=== PATIENT | female | born 1930 | race Caucasian/White ===

== ENCOUNTER 2021-03-03 13:13 | Inpatient (IN) | payer OTHER, MEDICARE ==
--- OUTSIDE RECORDS SUMMARY | 2021-03-03 13:17 | XMS REPORT | Continuity of Care Document ---
:1930 Author Organization [facility] t Address [address] [place] [address] Care Team Providers Name Role Phone Vinod Garcia MD Primary Care Physician Doctor Unassigned, [place] Attending Clinician Unavailable Ac Pastor MD Attending Clinician Rae Saavedra MD Attending Clinician Amado Elder MD Attending Clinician Martin Marrero DO Attending Clinician Kevin MAJANO Attending Clinician JANES Admitting Clinician Unavailable Payers Payer Name Policy Type Policy Effective Date Expiration Date Sour Number AARPAARP [id number] 2007 [facility] [id number] 00:00:00 Cara ballard 2007-PresentComme rcial MEDICAREMEDICARE PART [id number] Pr [facility] A AND 00:00:00 [facility] [id number] 1995 [place] Problems Condition Condition Condition Status Onset Resolution Last Treating Co mments Source Name Details Category Date Date Treatment Clinician Date Stroke Stroke Disease Active Methodi (cerebrum) (cerebrum) 1 st 00:00: Hospita 00 l KEYLA (acute KEYLA (acute Disease Active M ethodi kidney kidney 1 st injury) injury) 00:00: Hospita 00 l Constipate Constipate Disease Active M ethodi d d 1 st 00:00: Hospita 00 l Generalize Generalize Disease Active M ethodi d d 3 st abdominal abdominal 00:00: [facility] pain pain 00 l Acute Acute Disease Active Methodi renal renal 3 st failure failure 00:00: Hospita superimpos superimpos 00 l ed on ed on stage 3 stage 3 chronic chronic kidney kidney disease disease Hyponatrem Hyponatrem Disease Active M ethodi ia ia 3 st 00:00: Hospita 00 l Acute Acute Disease Active 2017-07 [facility] cystitis cystitis 0-03 st 00:00: Hospita 00 l Epigastric Epigastric Disease Active 2017-07 M ethodi pain pain 0-03 st 00:00: Hospita 00 l Bilateral Bilateral Disease Active 2017-07 Met hodi hearing hearing 0-03 st loss loss 00:00: Hospita 00 l TIA TIA Disease Active 2017-07 [facility] (transient (transient 0-02 st ischemic ischemic 00:00: Hospit a attack) attack) 00 l Essential Essential Disease Active 2017-07 [facility] hypertensi hypertensi 0-02 st on on 00:00: Hospita 00 l Renal Renal Disease Active 2017-07 Methodi insufficie insufficie 0-02 st ncy ncy 00:00: Hospita 00 l Depression Depression Disease Active 2017-07 M ethodi 0-02 st 00:00: Hospita 00 l TIA TIA Disease Active Methodi (transient (transient 4-29 st ischemic ischemic 00:00: Hospit a attack) attack) 00 l Dementia Dementia Disease Active 2017-0 Metho di 4- st 00:00: Hospita 00 l Paroxysmal Paroxysmal Disease Active M ethodi atrial atrial 11-06 st fibrillati fibrillati 00:00: Ho spita on on 00 l Transient Transient Disease Active Met hodi cerebral cerebral 11-03 st ischemia ischemia 00:00: Hospit a 00 l Clostridiu Clostridiu Disease Active M ethodi m m 01-06 st difficile difficile 00:00: [facility] enterocoli enterocoli 00 l tis tis Pneumonia Pneumonia Disease Active Met hodi of right of right 01-03 st lower lobe lower lobe 00:00: Ho spita due to due to 00 l infectious infectious organism organism Debility Debility Disease Active Metho di 12-30 st 00:00: Hospita 00 l UTI UTI Disease Active [facility] (urinary (urinary 12-30 st tract tract 00:00: Hospita infection) infection) 00 l Diarrhea Diarrhea Disease Active Metho di 12-22 st 00:00: Hospita 00 l Dehydratio Dehydratio Disease Active M ethodi n n 12-21 st 00:00: Hospita 00 l Delirium Delirium Disease Active Metho di 12-21 st 00:00: Hospita 00 l Hypertensi Hypertensi Disease Active M ethodi ve ve 12-21 emergency emergency 00:00: [facility] 00 l Leukocytos Leukocytos Disease Active 0 M ethodi is is 12-21 st 00:00: Hospita 00 l Allergies, Adverse Reactions, Alerts Allergy Allergy Status Severity Reaction(s) Onset Inactive Treating Comm ents Source Name Type Date Date Clinician Ferrous Propensi Active GI 2017-07 Oral only Meth jamey Sulfate ty to Intolerance [address] adverse 00:00: Hospita reaction 00 l s to drug Iron Propensi Active GI Oral only Metho di ty to Intolerance 01-03 st adverse 00:00: Hospita reaction 00 l s to drug Cephalex Propensi Active Unknown Metho di in ty to 01-[address] adverse 00:00: Hospita reaction 00 l s to drug Sulfamet Propensi Active "increase Met hodi hoxazole ty to 12-[address] -Trimeth adverse 00:00: pressure" [facility]osp [facility] oprim reaction 00 l s to drug Social History Social Habit Start Date Stop Date Quantity Comments Source Tobacco use and 2018-10-03 2018-10-03 Never used [facility] exposure 00:00:00 00:00:00 Hospital Alcohol intake 2018-10-03 2018-10-03 Current [facility] 00:00:00 00:00:00 non-drinker of Hospital alcohol (finding) Sex Assigned At [birth year] [facility] 00:00:00 00[facility]:00 Hospital Smoking Status Start Date Stop Date Source Never smoker [facility] Medications Ordered Filled Start Stop Current Ordering Indication Dosage Frequency Signature Comments Components Source Medication Medication Date Date Medication? Clinician (SIG) Name Name aspirin 81mg QD Take 1 Methodi (ECOTRIN) 1-16 02-16 tablet (81 st 81 MG 00:00: 05:59 mg total) Hospit a enteric 00 :00 by mouth l coated daily for tablet 30 days. ALPRAZolam Yes .5mg Q.5D Take 0.5 Met hodi (XANAX) 0.5 1-[address] MG tablet 21:32: mouth 2 Hospi ta 04 (two) l times a day. Anxiety/ag itation levothyroxi Yes 50ug QD Take 50 Met hodi ne 1-[address] (SYNTHROID, 21:32: mouth Hospi ta LEVOTHROID) 04 every l 50 MCG morning. tablet atorvastati Yes 10mg QD Take 10 mg Methodi n (LIPITOR) 1-[address] 10 MG 21:32: nightly. Hospita tablet 04 l metoprolol Yes 25mg Q12H Take 25 mg M ethodi tartrate 1-[address] (LOPRESSOR) 21:32: every 12 Ho spita 25 MG 04 (twelve) l tablet hours. hold for SBP <110 or HR<60 dicyclomine Yes 20mg QD Take 20 mg Methodi (BENTYL) 20 1-[address] mg tablet 21:32: daily. Hospit a 04 Related to l irritable bowel syndrome with diarrhea magnesium Yes 400mg QD Take 400 Met hodi oxide 1-[address] (MAG-OX) 21:32: mouth Hospita 400 mg 04 nightly. l (241.3 mg magnesium) tablet aspirin 81 0 Yes 81mg QD Chew 81 mg M ethodi mg chewable 1-[address] tablet 21:32: Hospita 04 l amLODIPine Yes 10mg QD Take 10 mg M ethodi (NORVASC) 1-[address] 10 mg 21:32: daily. Hospita tablet 04 l trolamine Yes 1{appli Apply 1 Me thodi salicylate 1-15 cation} applicatio st (ASPERCREME 21:32: n Hospit a ) 10 % 04 topically l cream as needed for muscle/mic nt pain. ferrous Yes 325mg QD Take 325 Metho di sulfate 325 1-[address] (65 FE) MG 21:32: mouth Hospit a tablet 04 daily with l breakfast. hydrALAZINE Yes 25mg Q8H Take 25 mg Methodi (APRESOLINE 1-[address] ) 25 MG 21:32: every 8 Hospita tablet 04 (eight) l hours as needed (hold for SBP <110 or HR<60). loperamide Yes 2mg Q.25D Take 2 mg M ethodi (IMODIUM) 2 1-[address] mg capsule 21:32: (four) Hospi ta 04 times a l day as needed for diarrhea. ondansetron Yes 4mg Q8H Take 4 mg M ethodi (ZOFRAN) 4 1-[address] MG tablet 21:32: every 8 Hospi ta 04 (eight) l hours as needed for nausea or vomiting. acetaminoph Yes 650mg Q6H Take 650 M ethodi en 1-[address] (TYLENOL) 21:32: mouth Hospita 325 MG 04 every 6 l tablet (six) hours as needed for mild pain. pantoprazol 2020- No 40mg Q.5D Take 1 Met hodi e 1-15 02-15 tablet (40 st (PROTONIX) 00:00: 05:59 mg total) H ospita 40 MG EC 00 :00 by mouth 2 l tablet (two) times a day for 30 days. metoprolol 0 2020- No 50mg Q12H Take 1 Meth jamey tartrate 07-2515 tablet (50 st (LOPRESSOR) 00:00: 05:59 mg total) Hospita 50 mg 00 :00 by mouth l tablet every 12 (twelve) hours for 30 days. apixaban 2020- No 2.5mg Q.5D Take 1 Metho di (ELIQUIS) 07-[address] 2.5 mg 00:00: 05:59 (2.5 mg Hospita tablet 00 :00 total) by l mouth 2 (two) times a day for 30 days. amoxicillin No 500mg Q.5D Take 1 Me thodi -pot 07-[address] clavulanate 00:00: 05:59 (500 mg Ho spita (AUGMENTIN) 00 :00 total) by l 500-125 mg mouth 2 per tablet (two) times a day for 7 days. vit A,C and 2020- No 1{tbl} QD Take 1 M ethodi E-lutein-mi 07-[address] nerals 15:18: 00:00 mouth Hospita (OCUVITE 15 :00 daily. l WITH LUTEIN) 1,000 unit-200 mg-60 unit-2 mg tablet per tablet furosemide 2020- No 40mg Q.5W Take 40 mg Methodi (LASIX) 40 07-[address] mg tablet 15:17: 00:00 (two) Hospit a 50 :00 times a l week. Tuesday, Tuesday eszopiclone No 3mg QD Take 3 mg [facility] (LUNESTA) 3 07-[address] mg tablet 15:17: 00:00 nightly. Hos suha 40 :00 Take l immediatel y before bedtime dexlansopra 2020- No 60mg QD Take 60 mg Methodi zole 07-[address] (DEXILANT) 15:17: 00:00 daily. [facility]osp [facility] 60 mg 15 :00 l capsule cholecalcif 2020- No 1000U QD Take 1,000 Methodi moshe, 07-[address] vitamin D3, 15:17: 00:00 mouth [facility]osp [facility] (VITAMIN 03 :00 daily. l D3) 1,000 unit tablet apixaban 2.5mg Q.5D Take 2.5 Met hodi (ELIQUIS) 07-[address] 2.5 mg 15:16: 00:00 mouth 2 Hospita tablet 49 :00 (two) l times a day. amlodipine- 2020- No 1{tbl} QD Take 1 M ethodi valsartan 07-17 tablet by (EXFORGE) 14:56: 00:00 mouth Hospit a 5-160 mg 37 :00 nightly. l per tablet Procrit 2019-07 Yes 1mL Q14D Inject 1 Method i 10,000 2-[address] unit/mL 00:00: the skin Hospit a injection 00 every 14 l (fourteen) days. Vital Signs Vital Name Observation Time Observation Value Comments Source Systolic blood 2020-07-25 15:30:00 148 mm[Hg] [facility] pressure Diastolic blood 2020-07-25 15:30:00 70 mm[Hg] [facility] pressure Heart rate 2020-07-25 15:30:00 62 /min [facility] Body temperature 2020-07-25 14:14:53 36.28 Brigitte [facility] Respiratory rate 2020-07-25 14:14:53 17 /min [facility] Oxygen saturation in 2020-07-25 14:14:53 97 /min [facility] Arterial blood by Pulse oximetry Body weight 2020-07-24 09:07:51 47.945 kg [facility] BMI 2020-07-24 09:07:51 16.55 kg/m2 [facility] Body height 2020-07-17 00:39:00 170.2 cm [facility] Procedures Procedure Date / Time Performing Clinician Source Performed DURABLE MEDICAL EQUIPMENT 2020-07-25 00:56:40 Agustina Brown [facility] EEG AWAKE/DROWSY LESS 2020-07-24 17:29:05 Esperanza Quijano [facility] THAN 41 MIN COMPREHENSIVE METABOLIC 2020-07-24 10:00:00 Vinod Marrero [facility] PANEL ESTIMATED GFR 2020-07-24 10:00:00 [facility] POC GLUCOSE 2020-07-23 19:21:00 [facility] LIPID PANEL 2020-07-23 17:09:00 [facility] BASIC METABOLIC PANEL 2020-07-23 10:00:00 [facility] ESTIMATED GFR 2020-07-23 10:00:00 [facility] CT HEAD WO CONTRAST 2020-07-22 19:36:22 [facility] HC COMPLETE BLD COUNT 2020-07-22 14:37:00 [facility] W/AUTO DIFF CBC WITH PLATELET AND 2020-07-22 13:40:00 [facility] DIFFERENTIAL BASIC METABOLIC PANEL 2020-07-22 11:30:00 [facility] ESTIMATED GFR 2020-07-22 11:30:00 [facility] POC GLUCOSE 2020-07-22 01:10:00 [facility] BASIC METABOLIC PANEL 2020-07-21 11:10:00 [facility] ESTIMATED GFR 2020-07-21 11:10:00 [facility] BASIC METABOLIC PANEL 2020-07-20 10:00:00 [facility] ESTIMATED GFR 2020-07-20 10:00:00 [facility] POC GLUCOSE 2020-07-20 02:50:00 [facility] HC COMPLETE BLD COUNT 2020-07-19 11:25:00 [facility] W/AUTO DIFF BASIC METABOLIC PANEL 2020-07-19 11:25:00 [facility] ESTIMATED GFR 2020-07-19 11:25:00 [facility] HC COMPLETE BLD COUNT 2020-07-18 11:00:00 [facility] W/AUTO DIFF BASIC METABOLIC PANEL 2020-07-18 11:00:00 [facility] ESTIMATED GFR 2020-07-18 11:00:00 [facility] SODIUM LEVEL, URINE, 2020-07-18 04:00[facility]00 [facility] CREATININE LEVEL, URINE, 2020-07-18 04:00:00 [facility] RANDOM US RENAL 2020-07-17 22:20:00 [facility] Imarendene COMPREHENSIVE METABOLIC 2020-07-17 11:00:00 [facility] PANEL Imarendenewe ESTIMATED GFR 2020-07-17 11:00:00 [facility] LACT[facility] ACID LEVEL, SEPSIS 2020-07-17 05:41:00 [facility] - NOW AND REPEAT [facility]X [facility] TROPONIN 2020-07-17 05:41:00 [facility] LACTIC ACID LEVEL, SEPSIS 2020-07-17 03:37:00 [facility] - NOW AND REPEAT 2X EVERY Imarendene 3 HOURS TROPONIN 2020-07-17 03:37:00 [facility] C[facility]URE 2020-07-17 01:03:[address] [facility] [address] ABDOMEN PELVIS WO 2020-07-17 00:52:11 [facility] CONTRAST URINALYSIS SCREEN AND 2020-07-17 00:27:00 [facility] MICROSCOPY, WITH REFLEX TO CULTURE ECG 12-LEAD 2020-07-17 00:18:58 [facility] XR CHEST 1 VW PORTABLE 2020-07-17 00:01:25 [facility] HC COMPLETE BLD COUNT 2020-07-16 23:50:00 [facility] W/AUTO DIFF PROTHROMBIN TIME WITH INR 2020-07-16 23:50:00 [facility] PARTIAL THROMBOPLASTIN 2020-07-16 23:50:00 [facility] TIME (PTT) COMPREHENSIVE METABOLIC 2020-07-16 23:50:00 [facility] PANEL MAGNESIUM LEVEL 2020-07-16 23:50:00 [facility] PHOSPHORUS LEVEL 2020-07-16 23:50:00 [facility] ESTIMATED GFR 2020-07-16 23:50:00 [facility] TROPONIN 2020-07-16 23:50:00 [facility] NATRIURETIC PEPTIDE 2020-07-16 23:50:00 [facility] LACTIC ACID LEVEL, SEPSIS 2020-07-16 23:50:00 [facility] - NOW AND REPEAT 2X EVERY 3 HOURS BLOOD CULTURE, AEROBIC & 2020-07-16 23:50:00 [facility] ANAEROBIC RESPIRATORY PATHOGEN 2020-07-16 23:50:00 [facility] PANEL WITH COVID-19 RT-PCR BLOOD CULTURE, AEROBIC & 2020-07-16 23:41:00 [facility] ANAEROBIC Plan of Care Planned Activity Planned Date Details Comments Source Future Scheduled Test 65+ PNEUMOCOCCAL [facility] VACCINE (1 of 4 - PCV13) [code = 65+ PNEUMOCOCCAL VACCINE (1 of 4 - PCV13)] Future Scheduled Test COVID-19 VACCINE (1) [facility] [code = COVID-19 VACCINE (1)] Future Scheduled Test SHINGLES VACCINES (#1) [facility] [code = SHINGLES VACCINES (#1)] Future Scheduled Test INFLUENZA VACCINE [code [facility] = INFLUENZA VACCINE] Encounters Start End Encounter Admission Attending Care Care Encounter Source Date/Time Date/Time Type Type Clinicians Facility Department ID 2020-12-24 2020-12-24 Orders Doctor CARREON [id number] 00:00:00 00:00:00 Only Unassigned, COTY [id number] [facility] [id number] [id number] 009 2020-12-02 2020-12-02 Orders Doctor LAURI 1.2.840.114 [id number] 00:00:00 00:00:00 Only Unassigned, COTY [id number] [facility] [id number] [id number] [id number] 2020-11-21 2020-11-21 Orders Doctor CARREON [id number] 00:00:00 00:00:00 Only Unassigned, COTY [id number] [facility] [id number] [id number] [id number] 2020-10-14 2020-10-14 Michaela Pastor [facility] [id number] 00:00:00 00:00:00 (Out) Pato Schultz [id number] [place] [id number] Professio [id number] [facility] 092 Building 2020-10-14 2020-10-14 Orders Doctor CARREON [id number] 00:00:00 00:00:00 Only Unassigned, COTY [id number] [facility] [id number] [id number] [id number] 2020-09-26 2020-09-26 Office Quentin [facility] [id number] 10:35:38 12:17:10 [facility] [id number] [place] 4.2.7.2.686 Professio [id number] [place] 044 Office Building One 2020-09-23 2020-09-23 Orders Doctor CARREON [id number] 00:00:00 00:00:00 Only Unassigned, COTY [id number] [facility] [id number] [id number] [id number] 2020-09-15 2020-09-15 Orders Doctor CARREON [id number] 00:00:00 00:00:00 Only Unassigned, COTY [id number] [facility] [id number] [id number] [id number] 2020-07-16 2020-07-25 [facility] Mark Elder 1.2.840.1 [id number] Methodi 17:20:00 15:31:00 Encounter JanesVinod 85118.1.[address] Agustina Brown 3.430.2.7 Hospita .[id number] l .8 2020-07-16 2020-07-25 Inpatient KEVIN [facility] [id number] [place] 00:00:00 00:00:00 AGUSTINA [address] Results Test Description Test Time Test Comments Results Result Comments Source [facility] Bed, Gel Overlay 2020-08-02 02:32:36 Test Item Value Reference Range Interpretation Comme nts SUPPLIER NAME (test code = 6415) [employer] SUPPLIER PHONE (test code = 6416) [phone] ORDER STATUS (test code = 6417) Delivery Successful DELIVERY NOTE (test code = 6419) REQUESTED DELIVEY DATE (test code = 6420) 07/24/2020 ITEM DESCRIPTION (test code = 6423) Full Bed Rails EXPECTED DELIVERY DATE (test code = 6421) 08/01/2020 ACTUAL DELIVERY DATE (test code = 6422) [facility] 19:49:38VIDEO-EEG RECORDING AWAKE & ASLEEP. Date of Service:07/24/20 Patient Name: Lucy Moser of : 1930 Attending MD: Birdie Mansfield MD Technique: Recordings were obtained using a standard international 10-20 electrode placement supplemented with a single electrocardiogram chest electrode. The recordings were obtained using a reference electrode and reformatted digitally into sequential bipolar and referential montages for review. Indication: 89 y.o. year old female with AMS referred for video-EEG to evaluate for seizures. Findings: Background: The patient is encephalopathic. The background is continuous, composed of predominantly theta and delta frequencies, with poor anterior to posterior organization and a posterior dominant rhythm of 6 Hz. With drowsiness, there is the expected attenuation of the posterior dominant rhythm. During sleep, there is the emergence of poorly formed sleep architecture including sleep spindles and K complexes noted. Hyperventilation: was not performedPhotic stimulation: was not performed Interictal: There are no epileptiform discharges or seizures captured. Impression:This is a moderately abnormal Video-EEG study characterizedby diffuse slowing of the background, a non-specific indicator of global cerebral dysfunction. There are no epileptiform discharges or seizures captured. Birdie Mansfield MD ICD-10 Code: R569 [facility] [id number] 19:42:39EXAMINATION: CT HEAD WO CONTRAST CLINICAL HISTORY: Mental status change unknown cause COMPARISON: CT of the head dated April 11, 2018 FINDINGS: There is generalized brain parenchymal involution atrophy with white matter nonspecific hypodensities. There is minimal nonspecific ventriculomegaly most likely related to central volume loss. There is right-sided cochlear implant with significant streak artifact produced by the device. There is a new hypodensity in the left parasagittal region of the lion measuring 7 mm in maximum diameter concerning for ischemic lacunar infarction of undetermined age. There is no evidence of acute hemorrhage, mass lesion, or midline shift. The garland-white matter diff erentiation is preserved with no evidence of acute territorial infarction. There is no extra-axial fluid collection. Visualized paranasal sinuses and mastoid air cells are clear. Bones, orbits, and soft tissues are unremarkable All CT images were acquired using low-dose technique with automated exposure control. IMPRESSION: No acute intracranial hemorrhage or mass effect. The new small 7 mm lacunarinfarction in the lion of undetermined age. Clinical correlation is recommended.56 [id number] Interface, Radiology Results Incoming - 07/22/2020 1:45 PM CST EXAMINATION: CT HEAD WO CONTRASTCLINICAL HISTORY: Mental status change unknown causeCOMPARISON: CT of the head dated April 11, 2018FINDINGS: There is generalized brain parenchymal involution atrophy with white matter nonspecific hypodensities. There is minimal nonspecific ventriculomegaly most likely related to central volume loss.There is right-sided cochlear implant with significant streak artifact produced by the device.There is a new hypodensity in the left parasagittal region of the lion measuring 7 mm in maximum diameter concerning for ischemic lacunar infarction of undetermined age.There is no evidence of acute hemorrhage, mass lesion, or midline shift. The garland-white matter differentiation is preserved with no evidence of acute territorial infarction. There is no extra-axial fluid collection.Visualized paranasal sinuses and mastoid air cells are clear. Bones, orbits, and soft tissues are unremarkableAll CT images were acquired using low-dose technique withautomated exposure control.IMPRESSION: No acute intracranial hemorrhage or mass effect.The new small7 mm lacunar infarction in the lion of undetermined age. Clinical correlation is recommended.[id number] [facility] [id number] 23:46:50EXAMINATION: US RENAL CLINICAL HISTORY: Renal failure acute TECHNIQUE: Sonographic imaging over the kidneys was performed. COMPARISON: CT abdomen pelvis 07/26/2020 FINDINGS: 1.The right kidney is normal size measuring 9.4 cm in long axis. The kidney has normal echogenicity. Vascular flow is unremarkable. Multiple simple appearing renal cysts with the largest at the superior pole measuring up to 4.1 cm. No hydronephrosis, renal calculi or perirenal fluid 2.The left kidney is normal size measuring 9.6 cm in long axis. The kidney has normal echogenicity. Vascular flow is unremarkable. Multiple sim ple appearing renal cysts with the largest at the lateral margin measuring up to 4.3 cm. No hydronephrosis, renal calculi or perirenal fluid collection. 3.The bladder is decompressed by Whitt catheterlimiting evaluation.. IMPRESSION: Multiple bilateral simple appearing renal cysts otherwise normal renal ultrasonographic examination. [id number] Interface, Radiology Results Incoming - 15:49 PM CST EXAMINATION: US RENALCLINICAL HISTORY: Renal failure acuteTECHNIQUE: Sonographic imaging over the kidneys was performed. COMPARISON: CT abdomen pelvis 07/26/2020FINDINGS:1.The right kidney is normal size measuring 9.4 cm in long axis. The kidney has normal echogenicity. Vascular flow is unremarkable. Multiple simple appearing renal cysts with the largest at the superior pole measuring up to 4.1 cm. No hydronephrosis, renal calculi or perirenal fluid2.The left kidney is normal size measuring 9.6 cm in long axis. The kidney has normal echogenicity. Vascular flow is unremarkable. Multiple simple appearing renal cysts with thelargest at the lateral margin measuring up to 4.3 cm. No hydronephrosis, renal calculi or perirenal fluid collection. 3.The bladder is decompressed by Whitt catheter limiting evaluation..IMPRESSION:Mult iple bilateral simple appearing renal cysts otherwise normal renal ultrasonographic examination.[id number] 12 [id number] 15:34:49 Test Item Value Reference Range Interpretation Comments Ventricular rate (test code = 253) Atrial rate (test code = 255) VT interval (test code = 266) QRSD interval (test code = 260) QT interval (test code = 264) QTC interval (test code = 265) P axis 1 (test code = 267) QRS axis 1 (test code = 268) T wave axis (test code = 270) EKG impression (test code = 273) [facility] [id number] 00:57:59EXAMINATION: CT ABDOMEN PELVIS WO CONTRAST CLINICAL HISTORY: Constipation COMPARISON: October 03, 2018 TECHNIQUE: Multiple axial CT images of the Abdomen and pelvis were obtained Without IV contrast limiting evaluation . Sagittal and coronal reconstructions were done. Radiation dose reduction technique used for this study. CT imaging was performed with iterative reconstruction technique and/or automated exposure control to reduce radiation dose. FINDINGS: HEPATOBILIARY: Unremarkable within the limitations of a noncontrast exam. GALLBLADDER: Prior cholecystectomy. SPLEEN: No splenomegaly. PANCREAS: Unremarkable within the limitations of a noncontrast exam. ADRENALS: No adrenal nodules. KIDNEYS: Able bilateral renal cysts. Punctate 2 mm calyceal stone in the superior pole of the left kidney is nonobstructing. No hydronephrosis bilaterally. PERITONEUM/RETROPERITONEUM: No free air or fluid. No lymphadenopathy. ABDOMINAL AORTA/IVC: No signs of aneurysm. GI TRACT: Large amount of stool present in the colon without bowel distention or wall thickening. There are no signs of appendicitis.No signs of diverticulitis. PELVIC ORGANS/BLADDER: There is been prior hysterectomy. A Whitt catheter is present in the urinary bladder. BONES AND SOFT TISSUES: No acute abnormality. VISUALIZED LOWER CHEST:There is wall thickening of the distal esophagus there is atherosclerosis of coronary arteries. Visualized lower lungs without acute abnormality. IMPRESSION: Large amount of stool present in the colonwithout signs of bowel obstruction. Thickening of distal esophagus. Correlate with symptoms of esophagitis. [facility]- [id number] Interface, Radiology Results Incoming - 07/16/2020 7:01 PM CST EXAMINATION: CT ABDOMEN PELVIS WO CONTRASTCLINICAL HISTORY: ConstipationCOMPARISON: October 03, 2018TECHNIQUE: Multiple axial CT images of the Abdomen and pelvis were obtained Without IV contrast limiting evaluation . Sagittal and coronal reconstructions were done. Radiation dose reduction technique used for this study.CT imaging was performed withiterative reconstruction technique and/or automated exposure control to reduce radiation dose.FINDINGS:HEPATOBILIARY: Unremarkable within the limitations of a noncontrast exam.GALLBLADDER: Prior cholecystectomy.SPLEEN: No splenomegaly.PANCREAS: Unremarkable within the limitations of a noncontrast exam.ADRENALS: No adrenal nodules.KIDNEYS: Able bilateral renal cysts. Punctate 2 mm calyceal stone in the superior pole of the left kidney is nonobstructing. No hydronephrosis bilaterally.PERITONEUM/RETROPERITONEUM: No free air or fluid. No lymphadenopathy.ABDOMINAL AORTA/IVC: No signs of aneurysm.GI TRACT: Large amount of stool present in the colon without bowel distention or wall thickening. There are no signs of appendicitis.No signs of diverticulitis.PELVIC ORGANS/BLADDER: There is been prior hysterectomy. A Whitt catheter is present in the urinary bladder.BONES AND SOFT TISSUES: No acute a bnormality.VISUALIZED LOWER CHEST: There is wall thickening of the distal esophagus there is atherosclerosis of coronary arteries. Visualized lower lungs without acute abnormality.IMPRESSION:Large amount of stool present in the colon without signs of bowel obstruction.Thickening of distal esophagus. Correlate with symptoms of esophagitis.[facility]-[id number] HospitalXR Chest 1 Vw [id number] 00:02:48EXAMINATION: XR CHEST 1 VW PORTABLE CLINICAL HISTORY: 89 years Female SOB COMPARISON: October 03, 2018 IMPRESSION: Cardiomediastinal silhouette is unchanged. Nonspecific widening of the right paratracheal stripe, similar in appearance to prior likely due to tortuosity of the great vessels. Aortic arch and descending aortic artery calcifications are present The lungs are clear Age related changes inthe osseous structures. . . Interface, Radiology Results Incoming - 07/16/2020 6:05 PM CST EXAMINATION: XR CHEST 1 VW PORTABLECLINICALHISTORY: 89 years Female SOBCOMPARISON: October 03, 2018IMPRESSION:Cardiomediastinal silhouette is unchanged. Nonspecific widening of the right paratracheal stripe, similar in appearance to prior likely due to tortuosity of the great vessels. Aortic arch and descending aortic artery calcifications arepresentThe lungs are clear Age related changes in the osseous structures...[facility]
--- NOTE | 2021-03-03 13:53 | RAD REPORT ---
EXAM DESCRIPTION: CT - Head Brain Wo Cont - 03/03/2021 1:42 pm CLINICAL HISTORY: unresponsive per half-way COMPARISON: No comparisons TECHNIQUE: All CT scans are performed using dose optimization technique as appropriate and may inclu de automated exposure control or mA/KV adjustment according to patient size. FINDINGS: No intracranial hemorrhage, hydrocephalus or extra-axial fluid collection.No areas of brai n edema or evidence of midline shift. Cerebral atrophy with moderate chronic small vessel ischemic ch anges. The paranasal sinuses and mastoids are clear. The calvarium is intact. A cochlear implant is present on the right side. IMPRESSION: No acute intracranial abnormality.
[2021-03-03 14:14] LABS: Absolute Lymphocytes (CBC) 1.6 K/uL (0.7-4.9); Basophils % 0.6 % (0-1.3); Hematocrit 31.5 % (36.0-45.0); Lymphocytes % 15.7 % (15.3-44.8); RBC Red Blood Cell Count 3.76 M/uL (3.86-4.86)
[2021-03-03 14:35] LABS: NT PRO-BNP 4017 pg/mL (<450); Troponin (Emerg Dept Use Only) < 0.02 ng/mL (0.0-0.045)
[2021-03-03 14:41] LABS: Anisocytosis 1+; Blood Morphology Comment NOTED (NOT SEEN); Platelet Estimate ADEQ; White Blood Cell Scan OK (OK)
--- NOTE | 2021-03-03 15:22 | RAD REPORT ---
EXAM DESCRIPTION: RAD - Chest Single View - 03/03/2021 3:04 pm CLINICAL HISTORY: unresponsive per long term COMPARISON: Chest Pa And Lat (2 Views) dated 06/05/2017; ABDOMEN 1 VIEW KUB dated 09/15/2015 FINDINGS: No evidence of edema or pneumonia. The heart size is within normal limits.No acute osseous abnormality. No significant pleural effusions or pneumothorax. IMPRESSION: No acute cardiopulmonary disease.
[2021-03-03 16:04] LABS: Potassium 4.3 mmol/L (3.5-5.1)
--- NOTE | 2021-03-03 16:06 | EDPHYS ---
Physician Documentation [facility] Name: Jeanette Moser Age: 89 yrs Sex: Female : 1930 Arrival Date: 03/03/2021 Time: 13:17 Bed 7 Private MD: ED Physician Carlos Mendez HPI: 03/03 13:33 This 89 yrs old Female presents to ER via Unassigned with complaints of rn became unresponsive. 13:33 The patient presents with decreased responsiveness. Onset: The symptoms/episode rn began/occurred just prior to arrival. Possible causes: unknown. Associated signs and symptoms:. Current symptoms: In the emergency department the patient's symptoms have improved. Unable to obtain HPI due to baseline dementia, patient is being uncooperative. It is unknown whether or not the patient has had similar symptoms in the past. It is unknown whether or not the patient has recently seen a physician. Per EMS report patient was in a wheelchair at alf being taken somewhere, slumped forward, told EMS that she became unresponsive briefly. No CPR or defibrillation administered. When EMS arrived patient was awake with normal vital signs and no complaints. Did not fall to the ground.. Historical: - Allergies: 13:40 sulfamethoxazole-trimethoprim; sv 13:40 TRIMETHOPRIM; sv 13:32 sulfamethoxazole-trimethoprim; iw 13:32 TRIMETHOPRIM; iw 13:32 Restoril; iw - Home Meds: 13:32 furosemide 20 mg Oral tab 1 tab once daily [Active]; levothyroxine 50 mcg tab 1 tab iw once daily [Active]; magnesium oxide 400 mg Oral cap 2 tab daily [Active]; megestrol 400 mg/10 mL (40 mg/mL) Oral susp 10 mL twice a day [Active]; metoprolol tartrate 25 mg Oral tab 1 tab 2 times per day [Active]; Ocuvite [id number] [id number]-mg Oral cap daily [Active]; Marisela-Lian 0.8 mg oral tab [Active]; tramadol 50 mg Oral tab twice a day [Active]; alprazolam 0.5 mg Oral Tb24 1 tab twice a day [Active]; atorvastatin 10 mg Oral tab 1 tab once daily [Active]; Dexilant 60 mg Oral CpDB 1 cap once daily [Active]; dicyclomine 20 mg Oral tab 1 tab daily [Active]; Eliquis 2.5 mg Oral tab 1 tab 2 times per day [Active]; amlodipine 10 mg tab 1 tab once daily [Active]; Aricept 5 mg Oral tab 1 tab once daily [Active]; aspirin 81 mg Oral chew 1 tab once daily [Active]; calcitrol 0.25 mcg daily [Active]; - PMHx: 13:40 Hypertension; Hypothyroidism; sv 13:32 Hypertension; Hypothyroidism; Anemia; Hypercholesterolemia; Atrial fibrillation; IBS; iw Osteoarthritis; GERD; Dementia; Anxiety; Cystic kidney disease; diverticulosis; anorexia; - Immunization history:: Adult Immunizations. - Social history:: Smoking status: Patient denies any tobacco usage or history of. - Family history:: not pertinent. - Hospitalizations: : No recent hospitalization is reported. ROS: 13:33 All other systems are negative. rn 13:33 All other systems are negative. 13:33 Unable to obtain ROS due to baseline dementia, patient being uncooperative. Exam: 13:33 Constitutional: This is a well developed, well nourished patient who is awake, alert, rn and in no acute distress. Uncooperative with exam Head/Face: Normocephalic, atraumatic. Eyes: Periorbital areas with no swelling, redness, or edema. ENT: Dry mucous membrane Cardiovascular: Regular rate and rhythm. No pulse deficits. Respiratory: No increased work of breathing, no retractions or nasal flaring. Abdomen/GI: Soft, non-tender Skin: Warm, dry MS/ Extremity: Pulses equal, no cyanosis. Neuro: Awake and alert, uncooperative with exam, during exam continues to turn to her right and assume a position, moves all 4 extremities 18:38 ECG was reviewed by the Attending Physician. rn Vital Signs: 13:17 BP 122 / 52; Pulse 78; Resp 14; Temp 97.8; Pulse Ox 99% ; Pain 0/10; sv 14:05 BP 110 / 51; Pulse 73; Resp 15; Temp 98.2(TE); Pulse Ox 100% on R/A; mh5 14:49 BP 103 / 53; Pulse 81; Resp 16; Pulse Ox 100% on R/A; sv 17:15 BP 141 / 60; Pulse 64; Resp 16; Pulse Ox 100% ; sv MDM: 13:19 Patient medically screened. rn 16:02 Differential Diagnosis: CVA, electrolyte abnormality, hypoglycemia, intracranial bleed, rn pneumonia, TIA, UTI, volume depletion. Data reviewed: vital signs, nurses notes, lab test result(s), EKG, radiologic studies, CT scan, plain films, and as a result, I will admit patient. Data interpreted: radiation monitor: rate is 81 beats/min, rhythm is normal sinus rhythm, regular, with no ectopy, Interpretation: normal rate, normal rhythm, Pulse oximetry: on room air is 100 %. Interpretation: normal. Test interpretation: by ED physician or midlevel provider: ECG, plain radiologic studies, Chest x-ray negative for acute infiltrate. Counseling: I had a detailed discussion with the patient and/or guardian regarding: the historical points, exam findings, and any diagnostic results supporting the discharge/admit diagnosis, lab results, radiology results, the need for further work-up and treatment in the hospital. Response to treatment: the patient's symptoms have mildly improved after treatment, and as a result, I will admit patient. Admission orders: after a detailed discussion of the patient's condition and case, the admit orders are written by me. 16:03 ED course: Patient weaker than normal and less responsive per daughter. Very unclear rn what happened at alf. Possible syncopal episode. No acute findings here. Will admit under observation.. 03/03 13:20 Order name: CBC with Diff; Complete Time: 14:49 03/03 13:20 Order name: Basic Metabolic Panel 03/03 13:33 Order name: Troponin (emerg Dept Use Only); Complete Time: 14:49 03/03 13:33 Order name: BNP; Complete Time: 14:49 03/03 13:33 Order name: Procalcitonin; Complete Time: 14:49 03/03 14:41 Order name: CBC Smear Scan; Complete Time: 14:49 EDMT 03/03 15:58 Order name: Urine Culture 03/03 15:58 Order name: Urine Microscopic Only 03/03 16:38 Order name: Urine Dipstick-Ancillary EDMT 03/03 17:31 Order name: SARS-COV-2 RT PCR [facility] 03/03 19:00 Order name: Protein, Total EDMT 03/03 19:00 Order name: Troponin I EDMT 03/03 19:00 Order name: Lipid Profile [facility] 03/03 13:20 Order name: CT Head Brain wo Cont; Complete Time: 14:49 rn 03/03 13:20 Order name: IV Start; Complete Time: 13:37 rn 03/03 13:20 Order name: EKG; Complete Time: 13:21 rn 03/03 13:20 Order name: EKG - Nurse/Tech; Complete Time: 13:37 rn 03/03 13:20 Order name: XRAY Chest (1 view); Complete Time: 15:23 rn 03/03 15:58 Order name: Urine Dipstick-Ancillary (obtain specimen); Complete Time: 16:49 rn 03/03 19:00 Order name: T4 Free EDMT 03/03 19:00 Order name: Thyroid Stimulating Hormone [facility] 03/03 21:17 Order name: Hemoglobin A1c [facility] 03/03 23:57 Order name: Troponin I [facility] 03/04 05:02 Order name: CBC with Automated Diff [facility] 03/04 05:35 Order name: Comprehensive Metabolic Panel [facility] 03/04 05:35 Order name: Troponin I [facility] 03/04 05:35 Order name: NT PRO-BNP [facility] 03/04 12:28 Order name: US EDMT EC:38 Rate is 81 beats/min. Rhythm is regular. QRS [place] is Normal. SC interval is normal. QRS rn interval is prolonged. QT interval is normal. No Q waves. T waves are Normal. No ST changes noted. Clinical impression: NSR, LBBB. Interpreted by me. Reviewed by me. Administered Medications: 16:35 Drug: NS 0.9% 500 ml Route: IV; Rate: bolus; Site: right forearm; sv Disposition Summary: 03/03/21 16:05 Hospitalization Ordered Hospitalization Status: Observation rn Provider: Magdaleno Almeida rn Condition: Stable rn Problem: new rn Symptoms: have improved rn Bed/Room Type: Standard rn Location: Telemetry/MedSurg (observation)(03/04/21 18:37) bd Room Assignment: 229(03/04/21 18:37) bd Diagnosis - Near Syncope rn - Weakness rn - Dehydration rn Forms: - Medication Reconciliation Form rn - SBAR form rn Signatures: Dispatcher [employer] [facility] Lois Vital Stephanie, RN RN sv Williams, Irene, RN RN iw Nieto, Roman MD MD [employer]: (The following items were deleted from the chart) 16: 15:59 CORONAVIRUS+MR.LAB.BRZ ordered. EDMS EDMS 16:05 Telemetry/MedSurg (observation) rn sv 16:05 rn sv 03/04 18:37 03/03 17:44 BR ER HOLD sv bd 03/04 18:37 03/03 17:44 ERHOLD- sv bd
--- NOTE | 2021-03-03 16:06 | ER ---
Nurse's Notes [facility] Name: Jeanette Moser Age: 89 yrs Sex: Female : 1930 Arrival Date: 03/03/2021 Time: 13:17 Bed 7 Private MD: Diagnosis: Near Syncope;Weakness;Dehydration Presentation: 03/03 13:17 Chief complaint: EMS states: staff reported pt went "limp" in her wheelchair, staff put sv her back to bed and pt was completely awake and alert. BP 140/80 HR-80 99\\T\\ RA. Hx Dementia. Coronavirus screen: Client denies travel out of the [place] in the last 14 days. At this time, the client does not indicate any symptoms associated with coronavirus-19. Ebola Screen: No symptoms or risks identified at this time. Initial Sepsis Screen: Does the patient meet any 2 criteria? No. Patient's initial sepsis screen is negative. Does the patient have a suspected source of infection? No. Patient's initial sepsis screen is negative. Risk Assessment: Do you want to hurt yourself or someone else? Patient reports no desire to harm self or others. Onset of symptoms was March 03, 2021. 13:17 Method Of Arrival: EMS: [facility] sv 13:17 Acuity: KADE 3 sv Triage Assessment: 13:20 General: Appears in no apparent distress. comfortable, slender, Behavior is sv cooperative, quiet. Pain: Unable to use pain scale. FLACC scale score is 0 out of 10. Neuro: Level of Consciousness is awake, alert, Oriented to responds to her name. Respiratory: Airway is patent Respiratory effort is even, unlabored, Respiratory pattern is regular, symmetrical. Derm: Skin is normal. Historical: - Allergies: 13:40 sulfamethoxazole-trimethoprim; sv 13:40 TRIMETHOPRIM; sv 13:32 sulfamethoxazole-trimethoprim; iw 13:32 TRIMETHOPRIM; iw 13:32 Restoril; iw - Home Meds: 13:32 furosemide 20 mg Oral tab 1 tab once daily [Active]; levothyroxine 50 mcg tab 1 tab iw once daily [Active]; magnesium oxide 400 mg Oral cap 2 tab daily [Active]; megestrol 400 mg/10 mL (40 mg/mL) Oral susp 10 mL twice a day [Active]; metoprolol tartrate 25 mg Oral tab 1 tab 2 times per day [Active]; Ocuvite [id number] [id number]-mg Oral cap daily [Active]; Marisela-Lian 0.8 mg oral tab [Active]; tramadol 50 mg Oral tab twice a day [Active]; alprazolam 0.5 mg Oral Tb24 1 tab twice a day [Active]; atorvastatin 10 mg Oral tab 1 tab once daily [Active]; Dexilant 60 mg Oral CpDB 1 cap once daily [Active]; dicyclomine 20 mg Oral tab 1 tab daily [Active]; Eliquis 2.5 mg Oral tab 1 tab 2 times per day [Active]; amlodipine 10 mg tab 1 tab once daily [Active]; Aricept 5 mg Oral tab 1 tab once daily [Active]; aspirin 81 mg Oral chew 1 tab once daily [Active]; calcitrol 0.25 mcg daily [Active]; - PMHx: 13:40 Hypertension; Hypothyroidism; sv 13:32 Hypertension; Hypothyroidism; Anemia; Hypercholesterolemia; Atrial fibrillation; IBS; iw Osteoarthritis; GERD; Dementia; Anxiety; Cystic kidney disease; diverticulosis; anorexia; - Immunization history:: Adult Immunizations. - Social history:: Smoking status: Patient denies any tobacco usage or history of. - Family history:: not pertinent. - Hospitalizations: : No recent hospitalization is reported. Screenin:40 Abuse screen: Denies threats or abuse. Denies injuries from another. Nutritional sv screening: No deficits noted. Tuberculosis screening: No symptoms or risk factors identified. Fall Risk No fall in past 12 months (0 pts). Secondary diagnosis (15 points) dementia, IV access (20 points). Ambulatory Aid- None/Bed Rest/Nurse Assist (0 pts). Gait- Normal/Bed Rest/Wheelchair (0 pts) Mental Status- Overestimates/Forgets Limitations (15 pts.). Total Cohen Fall Scale indicates High Risk Score (45 or more points). Fall prevention measures have been instituted. Side Rails Up X 2 Frequent Obs/Assessments Occuring. Assessment: 14:30 Reassessment: Patient appears in no apparent distress at this time. No changes from sv previously documented assessment. Patient and/or family updated on plan of care and expected duration. Pain level reassessed. 14:49 Reassessment: Xray at the bedside. sv 16:35 Reassessment: Patient appears in no apparent distress at this time. No changes from sv previously documented assessment. Patient and/or family updated on plan of care and expected duration. Pain level reassessed. 17:30 Reassessment: Patient appears in no apparent distress at this time. No changes from sv previously documented assessment. Patient and/or family updated on plan of care and expected duration. Pain level reassessed. Vital Signs: 13:17 BP 122 / 52; Pulse 78; Resp 14; Temp 97.8; Pulse Ox 99% ; Pain 0/10; sv 14:05 BP 110 / 51; Pulse 73; Resp 15; Temp 98.2(TE); Pulse Ox 100% on R/A; mh5 14:49 BP 103 / 53; Pulse 81; Resp 16; Pulse Ox 100% on R/A; sv 17:15 BP 141 / 60; Pulse 64; Resp 16; Pulse Ox 100% ; sv ED Course: 13:17 Patient arrived in ED. iw 13:19 Carlos Mendez MD is Attending Physician. rn 13:19 Shama Gilbert RN is Primary Nurse. sv 13:30 Inserted saline lock: 22 gauge in right forearm, using aseptic technique. ,using sv aseptic technique. diffusics Blood collected. Flushed right forearm with 5 ml normal saline. 13:30 Patient has correct armband on for positive identification. Bed in low position. Call sv light in reach. Side rails up X2. Pulse ox on. NIBP on. 13:40 Triage completed. sv 13:[address] via stretcher. sv 13:40 Arm band placed on. sv 13:41 CT Head Brain wo Cont In Process Unspecified. EDMS 13:59 Procalcitonin Sent. mh5 13:59 BNP Sent. mh5 13:59 Troponin (emerg Dept Use Only) Sent. mh5 13:59 Basic Metabolic Panel Sent. mh5 13:59 CBC with Diff Sent. mh5 14:00 Initial lab(s) drawn, Lab(s) recollected, by me, sent to lab. mh5 14:49 X-ray(s) taken. sv 15:04 XRAY Chest (1 view) In Process Unspecified. EDMS 16:05 Magdaleno Almeida is Hospitalizing Provider. rn 16:35 Straight cath inserted, using sterile technique, 16 Fr. Specimen obtained. Returned sv cloudy urine. Patient tolerated well. 17:43 No provider procedures requiring assistance completed. Patient admitted, IV remains in sv place. intact. 19:08 Primary Nurse role handed off by Shama Gilbert RN 03/04 16:38 Inserted saline lock: 22 gauge in right forearm, using aseptic technique. [facility] 19:04 Michel James, RN is Primary Nurse. bp Administered Medications: 03/03 16:35 Drug: NS 0.9% 500 ml Route: IV; Rate: bolus; Site: right forearm; sv Output: 16:35 Urine: 200ml (Straight Cath); Total: 200ml. sv Outcome: 16:05 Decision to Hospitalize by Provider. rn 17:43 Admitted to ER Hold. Please see [facility] for further documentation. sv 17:43 Condition: stable 17:43 Instructed on the need for admit. 03/04 21:09 Patient left the ED. sh9 Signatures: Dispatcher [employer] EDMS Shama Gilbert RN RN Chikis Castro RN RN iw Nieto, Roman, MD MD rn Martinez, Maria Annia Oneill [facility] Michel James, Leslie Thompson RN, RN RN sh9
[2021-03-03 16:39] LABS: Urine Blood 3+ (Negative); Urine Glucose Negative (Negative); Urine Protein 3+ (Negative); Urine Specific Gravity 1.025 (1.005-1.030)
[2021-03-03] MEDS ORDERED: NA CHLORIDE 0.9% 500 ML ONE (16:43)
[2021-03-03 16:54] LABS: Urine Bacteria LOADED /HPF (<20); Urine RBC NONE SEEN /HPF (NONE SEEN)
[2021-03-03] MEDS ORDERED: LABETALOL 20 MG/4ML SYRINGE IV PRN (17:26)
[2021-03-03] MEDS ORDERED: ONDANSETRON 4 MG/2 ML VIAL IV PRN (17:27)
[2021-03-03] MEDS ORDERED: ACETAMINOPHEN 500 MG TAB PO PRN (17:27)
--- NOTE | 2021-03-03 17:45 | P.HP ---
Certification for Inpatient Patient admitted to: Inpatient With expected LOS: >2 Midnights Patient will require the following post-hospital care: None Practitioner: I am a practitioner with admitting privileges, knowledge of patient current condition, hospital course, and medical plan of care. Services: Services provided to patient in accordance with Admission requirements found in Title 42 Section 412.3 of the Code of Federal Regulations Patient History Date of Service: 03/04/21 Reason for admission: AMS History of Present Illness: Patient is an 89-year-old female with a past medical history significant for hypothyroidism, hypertension, anemia, HLD, atrial fibrillation, GERD, dementia, anxiety disorder, osteoarthritis who presents with complaint of unresponsiveness. Patient currently alert and oriented x0. Patient unable to provide any history. Per report from [facility] patient was noted to be slumped momentarily over in her chair at the [facility]. Shortly after patient regained consciousness. senior care staff told EMS that the patient did not lose pulse. No other signs or symptoms reported. Symptoms are aggravated or relieved by nothing. Patient was brought to the hospital for medical evaluation. Allergies sulfamethoxazole [From Bactrim] Adverse Reaction (Verified 11/12/15 15:01) Anaphylaxis trimethoprim [From Bactrim] Adverse Reaction (Verified 11/12/15 15:01) Anaphylaxis sulfamethoxazole-trime Allergy (Uncoded 06/05/17 16:58) Unknown Home medications list reviewed: No Home Medications: Dexlansoprazole [Dexilant] 60 mg PO DAILY 09/08/15 Metoprolol Tartrate [Lopressor*] 25 mg PO BID 09/08/15 Vits A,C,E/Lutein/Minerals [Ocuvite with Lutein Tablet] 1 each PO DAILY 09/08/15 Aspirin 81 mg PO DAILY #30 tab.chew 09/25/15 Atorvastatin Calcium [Lipitor*] 10 mg PO BEDTIME #30 tab 09/25/15 Levothyroxine [Synthroid*] 50 mcg PO [id number] #30 tablet 09/25/15 ALPRAZolam [Xanax*] 0.5 mg PO BIDP PRN 03/03/21 Amlodipine [Norvasc] 10 mg PO DAILY 03/03/21 Apixaban [Eliquis] 2.5 mg PO BID 03/03/21 Dicyclomine HCl 20 mg PO DAILY 03/03/21 Donepezil [Aricept] 5 mg PO BEDTIME 03/03/21 Folic Acid/Vit B Complex and C [Marisela-Lian Tablet] 0.8 mg PO DAILY 03/03/21 Furosemide [Lasix] 20 mg PO 03/03/21 Magnesium Oxide [Mag 0X*] 800 mg PO DAILY 03/03/21 Megestrol [Megace*] 400 mg PO BID 03/03/21 calcitrioL [Rocaltrol] 0.25 mcg PO DAILY 03/03/21 traMADol HCL [Ultram*] 50 mg PO BID 03/03/21 - Past Medical/Surgical History Diabetic: No -: CKD -: ANEMIC -: REFLUX -: HTN, HLD -: THYROID DISEASE -: AFIB -: HX OF TIA -: CATARACT -: CEASAREAN -: LEAH -: HYSTERECTOMY -: BLADDER -: HERNIA -: COCHLEAR - Family History Mother -: Hypertension Sister -: Hypertension - Social History Smoking Status: Unknown if ever smoked Alcohol use: No CD- Drugs: No Caffeine use: Yes Review of Systems is unable to be obtained (Patient confused. AAXx0) Physical Examination - Physical Exam General: Alert, In no apparent distress, Demented HEENT: Atraumatic, PERRLA, Mucous membr. moist/pink, EOMI, Sclerae nonicteric Neck: Supple, 2+ carotid pulse no bruit, No LAD, Without JVD or thyroid abnor mality Respiratory: Clear to auscultation bilaterally, Normal air movement Cardiovascular: No edema, Regular rate/rhythm, Normal S1 S2 Capillary refill: <2 Seconds Gastrointestinal: Normal bowel sounds, Soft and benign, No tenderness Musculoskeletal: No tenderness Integumentary: No rashes Neurological: Normal affect Lymphatics: No axilla or inguinal lymphadenopathy External genitalia: Deferred Rectal: Deferred - Studies Laboratory Data (last 24 hrs) 03/03/21 13:56: Sodium 134 L, Potassium 4.3, BUN 81 H, Creatinine 4.78 H D, Glucose 113 H 03/03/21 13:53: WBC 10.50, Hgb 10.4 L, Hct 31.5 L, Plt Count 205 Assessment and Plan - Plan --Acute encephalopathy. Patient has baseline history of dementia. CT head unremarkable for any intracranial abnormality Encephalopathy could be due to UTI. We will keep patient n.p.o. until she is able to able to swallow. Continue supportive care. --UTI POA. Patient placed on antibiotics. --KEYLA on CKD 3B. Nephrology consulted. Patient is very dehydrated. Nephrology recommends gentle IV hydration. We will further recommendations. --Elevated BNP. Chest x-ray does not indicate any acute cardiopulmonary disease. Echo pending. Will reassess levels in a.m. --Dementia. Continue home medications when a when appropriate.. --Anemia of chronic disease. H&H stable. We will continue to monitor hemoglobin and transfuse if less than 7.0. --HLD. Continue statin. A. fib. Continue home medication when appropriate. --Anxiety disorder. Continue home medications when appropriate. --Hypertension. Continue home medications. --Anorexia. Continue home medications when appropriate. --Hypothyroidism. Continue Synthroid when appropriate. --DVT prophylaxis with heparin subQ.. I have had discussion about advanced directives with the patient and /or family during this hospital admission. Addressed code status and /or goals of care. Spent more than 15 minutes. Case discussed with nurse. Discharge disposition. Continue hospital stay. Out of hospital DNR Plan to discharge in: 48 Hours - Advance Directives Does patient have a Living Will: No Does patient have a Durable POA for Healthcare: No - Code Status/Comfort Care Code Status Assessed: Yes Code Status: Do Not Attempt Resuscitat Physician Review: Patient Assessed, Agree with Above Assessment and Plan Critical Care: No
[2021-03-03] MEDS: D5 0.9 NS 1,000 ML IV SCH (18:00)
[2021-03-03] MEDS ORDERED: CEFTRIAXONE 1 GM/NS 50 ML 1 GM/50 ML BAG IV SCH (18:00)
[2021-03-03] MEDS ORDERED: CEFTRIAXONE/SWI 1gm 1 GM/10 ML SYR ONE (18:24)
[2021-03-03] MEDS ORDERED: D5W 1,000 ML IV ONE (18:24)
[2021-03-03 18:41] VITALS: BMI 18.3
[2021-03-03 19:00] LABS: Protein, Total 7.1 g/dL (6.4-8.2); Thyroid Stimulating Hormone 1.76 uIU/mL (0.360-3.740); Troponin I 0.04 ng/mL (0.0-0.045)
[2021-03-04] MEDS: HEPARIN 5000 UNIT/ML 1 ML VIAL SQ SCH ×3 (00:38→17:00)
[2021-03-04] MEDS ORDERED: HEPARIN 5000 UNIT/ML 1 ML VIAL ONE ×2 (00:54→09:04)
[2021-03-04 04:56] LABS: Absolute Lymphocytes (CBC) 1.4 K/uL (0.7-4.9); Basophils % 0.5 % (0-1.3); Hematocrit 26.5 % (36.0-45.0); Lymphocytes % 17.2 % (15.3-44.8); MPV 9.5 fL (7.6-11.3); RBC Red Blood Cell Count 3.17 M/uL (3.86-4.86)
[2021-03-04 05:35] LABS: Albumin 3.1 g/dL (3.4-5.0); Bilirubin Total 0.3 mg/dL (0.2-1.0); Potassium 4.1 mmol/L (3.5-5.1); Protein, Total 6.4 g/dL (6.4-8.2); Troponin I 0.03 ng/mL (0.0-0.045)
[2021-03-04] MEDS: ASPIRIN 81 MG CHEWABLE TABLET PO SCH (09:00)
[2021-03-04] MEDS: CEFTRIAXONE/SWI 1gm 1 GM/10 ML SYR IVP SCH (09:00)
[2021-03-04] MEDS ORDERED: NA CHLORIDE 0.9% 100 ML ONE (09:04)
[2021-03-04] MEDS ORDERED: ASPIRIN 81 MG CHEWABLE TABLET ONE (09:04)
[2021-03-04] MEDS ORDERED: D5 0.9 NS 1,000 ML IV ONE (09:05)
[2021-03-04] MEDS ORDERED: CEFTRIAXONE/SWI 1gm 1 GM/10 ML SYR ONE (09:05)
--- NOTE | 2021-03-04 12:27 | RAD REPORT ---
EXAM DESCRIPTION: US - Renal Ultrasound-Complete - 03/04/2021 12:02 pm CLINICAL HISTORY: CKD COMPARISON: Abdomen Pelvis Wo Contrast dated 11/17/2015 FINDINGS: Exam was limited. Patient was unable to roll or turn to allow all a more optimal acoustic window for kidney evaluation. The right kidney measures 5.5 x 3.1 x 3.3 cm. The left kidney measures 7.9 x 4.5 x 4.1 cm. Cortical thickness is decreased on the right kidney relative to the left with both kidney showing increase in cortical echogenicity typical for medical renal disease. No hydronephrosis or suspicious renal mass. Bilateral renal cysts are present. A 3.8 centimeter cyst present upper pole left kidney with a 2 cm cyst in the lower pole. An adjacent 1.7 centimeter lower pole cyst is present. A 4.1 centimeter cyst present in the right kidney with adjacent 3.4 centimeter cyst. In the posterior superior dependent portion of the urinary bladder there is a 2-3 centimeter area of echogenic material appears to be discrete from the adjacent bladder wall. This is probably sediment o r debris in the lumen. This can be re-evaluated on follow-up imaging to determine if this changes pos ition or disperses in the bladder. Mass of the bladder wall is lesser in likelihood. IMPRESSION: No hydronephrosis of either kidney and no solid mass lesion identifiable. Right kidney appears atrophic relative to the left with both kidney showing underlying medical renal disease findings. Bilateral variably sized renal cysts are present. Suspected sediment or debris layering along the posterior wall of the bladder. Bladder wall mass is l shania in likelihood. This can be re-evaluated on subsequent imaging to determine if the debris change s positioning with bladder usage. No other significant findings.
[2021-03-04] MEDS: D5 0.9 NS 1,000 ML IV SCH (14:00)
--- NOTE | 2021-03-04 15:05 | CON ---
Date of Consultation: 03/04/2021 All the information has been obtained from the record, the patient is pleasantly confused. History Of Present Illness: This is an 89-year-old female with significant past medical history of c hronic kidney disease stage 4, baseline creatinine is 3.1 as of January 2020 with GFR of 14, hypertensio n, hypothyroidism, depression, AFib, TIA. The patient was brought to the hospital complaining from a ltered mental status. The patient had fall. No abnormality. Lab upon arrival showing elevation in BUN and creatinine. For that reason, we have been consulted. Reviewing her medications, there is no insulting medication. Past Medical History: Includes; 1.Chronic kidney disease, stage 4. 2.TIA. 3.Depression. 4.AFib. 5.Hypothyroidism. Allergies: TO SULFA AND TRIMETHOPRIM. Home Medications: Include , metoprolol, aspirin, atorvastatin, alprazolam, amlodipine, dox ycycline, , calcitriol, Lasix, magnesium. Past Surgical History: Includes hysterectomy, , cataract, hernia repair. Family History: Positive for hypertension. Social History: Lives in senior care. Denied smoking. Denied drinking. Denied drugs abuse. Review of Systems: None obtainable. Physical Examination: General: When I saw the patient; the patient is pleasantly confused. Vital Signs: Blood pressure 136/68, pulse of 63. Chest: Clear to auscultation. Heart: S1, S2. Regular. Systolic murmur. Abdomen: Soft, nontender. Extremities: No edema. Neuro: Confused. No focality. Laboratory Data: Sodium 133, potassium 4.1, bicarb 28, BUN 83, creatinine 4.7, GFR of 9. On January; c reatinine 3.1 with GFR of 12. WBC 7.9, H and H 8.8/26.5. Urinalysis negative for infection. Assessment And Plan: 1.Chronic kidney disease, advanced, stage 5, progression to end-stage renal disease, nonoliguric, po ssible uremic. The patient had acute component possible secondary to dehydration secondary to poor i ntake and Lasix use. I agree with holding Lasix. We will send for basic workup. We will contact th e family given her age to see if they are wishing to proceed with dialysis or not. Given her age, it is not going to be a good option. We will monitor the patient closely. 2.Hypertension with the presence of acute kidney injury. Hold Lasix. We will monitor the patient. 3.Contraction alkalosis secondary to Lasix. Hold Lasix. Start hydration. 4.Hyponatremia secondary to renal failure. We will start gentle hydration. 5.Altered mental status secondary to fall. CT head was negative. We will follow up with primary. EFREN/ARTHUR Voice ID: [id number] Report ID: [id number]
--- NOTE | 2021-03-04 15:39 | EKG ---
Test Date: 2021-03-03 Test Time: 13:25:24 Accounts Payable Supervisor: SV MEASUREMENT RESULTS: Intervals: Rate: 81 AL: 200 QRSD: 156 QT: 456 QTc: 529 Guttenberg: P: 65 AL: 200 QRS: 25 T: 184 INTERPRETIVE STATEMENTS: Normal sinus rhythm Left bundle branch block Abnormal ECG No previous ECG available for comparison Electronically Signed On 03-04-21 15:37:10 CDT by Sunny Diaz
--- NOTE | 2021-03-04 16:37 | P.PN ---
Subjective Date of Service: 03/04/21 Chief Complaint: AMS Subjective: Improving (AAO x1) Review of Systems is unable to be obtained Physical Examination - Vital Signs Temperature: 97.1 F Blood Pressure: 136/68 Pulse: 63 Respirations: 16 Pulse Ox (%): 97 - Physical Exam General: Alert, In no apparent distress, Oriented x1, Demented HEENT: Atraumatic, PERRLA, EOMI Neck: Supple, JVD not distended Respiratory: Clear to auscultation bilaterally, Normal air movement Cardiovascular: No edema, Regular rate/rhythm, Normal S1 S2 Capillary refill: <2 Seconds Gastrointestinal: Normal bowel sounds, No tenderness Musculoskeletal: No tenderness Integumentary: No rashes, No breakdown Neurological: Normal speech, Normal tone, Normal affect Lymphatics: No axilla or inguinal lymphadenopathy External genitalia: Deferred Rectal: Deferred Assessment And Plan - Plan Interval history. 03/04/2021 --Acute encephalopathy. Likely secondary to UTI vs Patient more alert. More alert and oriented x1. Continue antibiotics. --Patient cleared by speech therapist for regular diet. Patient placed on regular diet. --CKD 5. With gradual progression to ESRD per adult daycare coordinator. Nephrology plans to contact the family to see if they interested in dialysis. Further management per adult daycare coordinator. --Hyponatremia. Likely secondary to renal failure. Continue gentle IV hydration. Further management per adult daycare coordinator. --Continue current treatment regimen for other chronic conditions. --DVT prophylaxis with heparin subQ 03/03/21 --Acute encephalopathy. Patient has baseline history of dementia. CT head unremarkable for any intracranial abnormality Encephalopathy could be due to UTI. We will keep patient n.p.o. until she is able to able to swallow. Continue supportive care. --UTI POA. Patient placed on antibiotics. --KEYLA on CKD 3B. Nephrology consulted. Patient is very dehydrated. Nephrology recommends gentle IV hydration. We will further recommendations. --Elevated BNP. Chest x-ray does not indicate any acute cardiopulmonary disease. Echo pending. Will reassess levels in a.m. --Dementia. Continue home medications when a when appropriate.. --Anemia of chronic disease. H&H stable. We will continue to monitor hemoglo bin and transfuse if less than 7.0. --HLD. Continue statin. A. fib. Continue home medication when appropriate. --Anxiety disorder. Continue home medications when appropriate. --Hypertension. Continue home medications. --Anorexia. Continue home medications when appropriate. --Hypothyroidism. Continue Synthroid when appropriate. --DVT prophylaxis with heparin subQ.. I have had discussion about advanced directives with the patient and /or family during this hospital admission. Addressed code status and /or goals of care. Spent more than 15 minutes. Case discussed with nurse. Discharge disposition. Continue hospital stay. Out of hospital DNR Discharge Plan: [facility] Plan to discharge in: 48 Hours - Code Status/Comfort Care Code Status Assessed: Yes Code Status: Do Not Attempt Resuscitat Physician Review: Patient Assessed, Agree with Above Assessment and Plan Critical Care: No
[2021-03-05] MEDS: HEPARIN 5000 UNIT/ML 1 ML VIAL SQ SCH ×3 (01:55→16:37)
[2021-03-05 04:02] LABS: Absolute Lymphocytes (CBC) 1.8 K/uL (0.7-4.9); Basophils % 0.7 % (0-1.3); Hematocrit 26.8 % (36.0-45.0); Lymphocytes % 24.6 % (15.3-44.8); MPV 9.9 fL (7.6-11.3); RBC Red Blood Cell Count 3.19 M/uL (3.86-4.86)
[2021-03-05 04:50] LABS: ALT/SGPT 16 U/L (12-78); AST/SGOT 19 U/L (15-37); Albumin 3.1 g/dL (3.4-5.0); Alkaline Phosphatase 75 U/L (45-117); BUN Blood Urea Nitrogen 75 mg/dL (7-18); Bicarbonate 28 mmol/L (21-32); Bilirubin Total 0.3 mg/dL (0.2-1.0); Creatine Phosphokinase 114 U/L (26-192); Ferritin 70.8 ng/mL (8-388); Folic Acid, (Folate) > 20.0 ng/mL (3.1-17.5); Glucose Level 93 mg/dL (74-106); Phosphorus 3.7 mg/dL (2.5-4.9); Potassium 4.1 mmol/L (3.5-5.1); Protein, Total 6.4 g/dL (6.4-8.2); Sodium Level 136 mmol/L (136-145); Transferrin 175 mg/dL (200-360); Uric Acid 8.6 mg/dL (2.6-6.0)
--- NOTE | 2021-03-05 06:30 | P.PN ---
Subjective Date of Service: 03/05/21 Chief Complaint: AMS Subjective: No new changes Physical Examination - Vital Signs Temperature: 98.1 F Blood Pressure: 144/68 Pulse: 88 Respirations: 18 Pulse Ox (%): 96 - Physical Exam General: Other (appears as her stated age) HEENT: Atraumatic, Normocephalic Neck: Supple Respiratory: Diminished Cardiovascular: No rubs, No murmurs Gastrointestinal: Soft and benign, Non-distended Musculoskeletal: No clubbing Integumentary: No warmth External genitalia: Deferred Rectal: Deferred Assessment And Plan - Plan # KEYLA likely secondary to prerenal state +/- ATN from prolonged prerenal No significant renal recovery at this time Renal ultrasound shows atrophic right kidney, as well as smaller size left kidney BNP elevated at 4000, troponin negative PTH is not elevated at 44.9, so some of her renal function may still be recoverable Follow-up urine chemistry Continue D5 NS at 50 cc/hr while by mouth fluid intake is poor Monitor input and output, renal panel # Proteinuric CKD stage IV Baseline serum creatinine 2.0-2.5 (equiv GFR 18-23 ml/min) as of 07/15/2020 Follow-up random urine protein creatinine ratio Monitor renal panel # AMS Head CT negative Hx of dementia, unclear if advanced age or not Management per other services # Anemia Monitor H&H # Dispo Goals of care discussion ongoing Physician Review: Patient Assessed, Agree with Above Assessment and Plan
[2021-03-05] MEDS: D5 0.9 NS 1,000 ML IV SCH (06:53)
[2021-03-05] MEDS: CEFTRIAXONE/SWI 1gm 1 GM/10 ML SYR IVP SCH (09:00)
[2021-03-05] MEDS: ASPIRIN 81 MG CHEWABLE TABLET PO SCH (09:00)
--- NOTE | 2021-03-05 20:03 | P.PN ---
Subjective Date of Service: 03/05/21 Chief Complaint: AMS Patient is responsive but confused. Physical Examination - Vital Signs Temperature: 98.6 F Blood Pressure: 129/56 Pulse: 79 Respirations: 16 Pulse Ox (%): 96 - Physical Exam General: Confused HEENT: Mucous membr. moist/pink Neck: JVD not distended Respiratory: Clear to auscultation bilaterally Cardiovascular: No edema, Regular rate/rhythm, Normal S1 S2 Gastrointestinal: Soft and benign, Non-distended Musculoskeletal: No swelling Neurological: Other (Confused.), Dementia - Studies Microbiology Data (last 24 hrs): 03/03/21 16:30 Clean Catch Urine [place] Count - Final No growth. 03/03/21 16:30 Clean Catch Urine - Final No growth. Assessment And Plan - Plan Acute encephalopathy/UTI. Patient has baseline history of dementia. CT head unremarkable for any intracranial abnormality Encephalopathy likely due to UTI. Baseline advanced dementia. Continue supportive care. Diet as tolerated Continue antibiotics . KEYLA on CKD 3B. Nephrology is following. AKA likely secondary to dehydration. Renal function improvement only slowly. Echo pending. Dementia. Continue home medications. Anemia of chronic disease. H&H stable. We will continue to monitor hemoglobin and transfuse if less than 7.0. Hypertension. Continue home medications. Hypothyroidism. Continue Synthroid when appropriate. DVT prophylaxis with heparin subQ.. Physician Review: Patient Assessed, Agree with Above Assessment and Plan
[2021-03-06] MEDS: HEPARIN 5000 UNIT/ML 1 ML VIAL SQ SCH ×3 (01:16→17:02)
[2021-03-06] MEDS: D5 0.9 NS 1,000 ML IV SCH ×4 (01:16→22:48)
[2021-03-06 04:55] LABS: Urine Appearance TURBID (Clear); Urine Bilirubin NEGATIVE (Negative); Urine Blood 2+ (Negative); Urine Color YELLOW (Yellow); Urine Glucose NEGATIVE (Negative); Urine Protein 2+ (Negative); Urine Urobilinogen 0.2 mg/dL (0.2-1.0); Urine pH 6.5 (5.0-7.0)
[2021-03-06 04:56] LABS: Urine Microscopic Reflex ORDER UMIC
[2021-03-06 05:09] LABS: Urine Bacteria >50 /HPF (<20); Urine Mucus 2+ /HPF (NONE SEEN); Urine RBC TNTC /HPF (NONE SEEN)
[2021-03-06 06:58] LABS: Albumin 2.9 g/dL (3.4-5.0); Phosphorus 3.6 mg/dL (2.5-4.9); Potassium 3.4 mmol/L (3.5-5.1)
--- NOTE | 2021-03-06 07:09 | P.PN ---
Subjective Date of Service: 03/06/21 Chief Complaint: AMS Subjective: No new changes Physical Examination - Vital Signs Temperature: 99.6 F Blood Pressure: 121/57 Pulse: 67 Respirations: 18 Pulse Ox (%): 96 - Physical Exam General: Other (appears as her stated age) HEENT: Atraumatic, Normocephalic Neck: Supple Respiratory: Diminished Cardiovascular: No rubs, No murmurs Gastrointestinal: No guarding Musculoskeletal: No clubbing Urinary: Other (no bladder distention) - Studies Microbiology Data (last 24 hrs): 03/03/21 16:30 Clean Catch Urine [place] Count - Final No growth. 03/03/21 16:30 Clean Catch Urine - Final No growth. Assessment And Plan - Plan # EKYLA likely secondary to prerenal state +/- ATN from prolonged prerenal Improving Renal ultrasound shows atrophic right kidney, as well as smaller size left kidney BNP elevated at 4000, troponin negative PTH is not elevated at 44.9, so some of her renal function is still be recoverable Follow-up urine chemistry & random UPCR PO fluid intake is still poor. Continue D5 NS at 75 cc/hr. Monitor input and output, renal panel # Proteinuric CKD stage IV Baseline serum creatinine 2.0-2.5 (equiv GFR 18-23 ml/min) as of 07/15/2020 Follow-up random urine protein creatinine ratio Monitor renal panel # AMS Head CT negative Hx of dementia, unclear stage Per her daughter, her functional mobility has been progressively declining over the past several months Management per other services # Anemia Monitor H&H # Dispo Goals of care discussion ongoing Physician Review: Patient Assessed, Agree with Above Assessment and Plan
[2021-03-06] MEDS: ASPIRIN 81 MG CHEWABLE TABLET PO SCH ×3 (08:01→09:00)
[2021-03-06] MEDS: CEFTRIAXONE/SWI 1gm 1 GM/10 ML SYR IVP SCH (08:02)
[2021-03-06] MEDS ORDERED: POTASSIUM 25 MEQ EFFERV TAB PO ONE (09:00)
[2021-03-06 12:40] VITALS: O2SAT 98
--- NOTE | 2021-03-06 14:45 | P.PN ---
Subjective Date of Service: 03/06/21 Chief Complaint: AMS Patient more interactive today but confused. I suspect she is back to baseline. Physical Examination - Vital Signs Temperature: 99.5 F Blood Pressure: 135/69 Pulse: 84 Respirations: 15 Pulse Ox (%): 95 - Physical Exam General: Confused, Other (Frail appearing) HEENT: Mucous membr. moist/pink Neck: JVD not distended Respiratory: Clear to auscultation bilaterally, Normal air movement Cardiovascular: No edema, Regular rate/rhythm, Normal S1 S2 Gastrointestinal: Soft and benign, Non-distended Musculoskeletal: No swelling Neurological: Other (No focal motor deficits) Assessment And Plan - Plan Acute encephalopathy/UTI. CT head unremarkable for any intracranial abnormality Encephalopathy likely due to UTI. Baseline advanced dementia. Continue supportive care. Diet as tolerated. Patient is currently at baseline Continue antibiotics . KEYLA on CKD 3B. Nephrology is following. AKA likely secondary to dehydration. Renal function is improving. Recent creatinine baseline is about 2.5 to 3. Dementia. Continue home medications. Anemia of chronic disease. H&H stable. We will continue to monitor hemoglobin and transfuse if less than 7.0. Hypertension. Continue home medications. Hypothyroidism. Continue Synthroid when appropriate. DVT prophylaxis with heparin subQ.. Physician Review: Patient Assessed, Agree with Above Assessment and Plan
[2021-03-06] MEDS: ENSURE ENLIVE 237 ML CAN PO SCH (22:49)
[2021-03-06 23:33] LABS: UR PROTEIN 198.2 mg/dL (<11.9); Urine Protein/Creatinine Ratio 2.09 ratio (<0.15)
[2021-03-07] MEDS: HEPARIN 5000 UNIT/ML 1 ML VIAL SQ SCH ×3 (00:53→17:00)
[2021-03-07 08:48] LABS: Absolute Lymphocytes (CBC) 1.2 K/uL (0.7-4.9); Basophils % 0.6 % (0-1.3); Hematocrit 25.9 % (36.0-45.0); Lymphocytes % 19.2 % (15.3-44.8); MPV 10.4 fL (7.6-11.3); RBC Red Blood Cell Count 3.08 M/uL (3.86-4.86)
[2021-03-07 08:50] LABS: Albumin 2.8 g/dL (3.4-5.0); Phosphorus 2.9 mg/dL (2.5-4.9); Potassium 4.2 mmol/L (3.5-5.1)
[2021-03-07] MEDS: ENSURE ENLIVE 237 ML CAN PO SCH ×2 (09:00→21:00)
[2021-03-07] MEDS: ASPIRIN 81 MG CHEWABLE TABLET PO SCH (10:38)
[2021-03-07] MEDS: CEFTRIAXONE/SWI 1gm 1 GM/10 ML SYR IVP SCH (10:39)
[2021-03-07] MEDS ORDERED: SOD FERRIC GLUC COMPLX/SUCROSE 250 MG in NA CHLORIDE 0.9% 250 ML IV SCH (12:00)
[2021-03-07] MEDS ORDERED: D5 0.45 NS 1,000 ML IV SCH (12:00)
--- NOTE | 2021-03-07 15:09 | PN ---
Date of Progress Note: 03/07/2021 Subjective: The patient was admitted with acute kidney injury on advanced chronic kidney disease. T he patient was started on gentle hydration. Kidney function is slightly improving. Physical Examination: Vital Signs: Blood pressure 167/80, pulse of 74, afebrile. The patient is urinating and voiding. Chest: Clear to auscultation. Heart: S1, S2. Regular. Abdomen: Soft, nontender. Extremities: No edema. Neuro: Alert, not oriented, pleasantly confused. No tremor. Laboratory Data: WBC 6.2, H and H 8.7/25.9, sodium 142, potassium 4.2, bicarb 16, BUN down to 53, cr eatinine 3.3, GFR of 13, calcium 8.4, phosphorus 2.9, magnesium 4.1, iron saturation of 17, ferritin of 70. Albumin 2.8. Corrected calcium is 9.2. Serum protein electrophoresis is still pending. Hep atitis is still pending. Current Medications: The patient is on/it include: 1.Aspirin. 2.Ceftriaxone. 3.Tylenol. 4.Zofran. 5.IV fluid at 75 per hour. Assessment And Plan: 1.Acute kidney injury on advanced chronic kidney disease, slow recovery. I am going to continue gen tle hydration given the marginal hypernatremia. I am going change IV fluid to D5 half to establish b nellie sodium level and we will follow up. 2.Given the age of the patient, I rather not to start any dialysis as kidney function starts improvi ng and there is no urgent indication to initiate renal replacement therapy. 3.Hypernatremia. We will change IV fluid as above. 4.Iron deficiency anemia/anemia of chronic kidney disease. We will start the patient on IV iron and we will follow up. 5.Secondary hyperpara. Calcium, phosphate, PTH on the goal. No need for supplement with any calcitriol or binder for the time being. 6.Encephalopathy secondary to metabolic. Continue supportive care. EFREN/ARTHUR Voice ID: [id number] Report ID: [id number]
--- NOTE | 2021-03-07 17:06 | P.DS ---
Admission Date: 03/03/21 Discharge Date: 03/07/21 Disposition: TRANSFER TO [facility] Discharge Condition: FAIR Reason for Admission: AMS Consultations: Nephrology-Dr. Lewis - Problems (1) Acute metabolic encephalopathy Current Visit: Yes Status: Acute (2) Acute worsening of stage 4 chronic kidney disease Current Visit: Yes Status: Acute (3) Chronic anticoagulation Current Visit: Yes Status: Acute (4) Acute cystitis without hematuria Current Visit: Yes Status: Acute (5) Atrial fibrillation Onset Date: 09/15/15 Current Visit: No Status: Acute (6) Moderate protein-calorie malnutrition Current Visit: Yes Status: Acute Brief History of Present Illness: 89-year-old female with a past medical history significant for hypothyroidism, hypertension, anemia, HLD, atrial fibrillation, GERD, dementia, anxiety disorder, osteoarthritis was transferred from the [facility] to the emergency department due to unresponsiveness. Patient alert and oriented x0 and unable to provide any history. UA in the ED suggested the presence of UTI. Chest x-ray-no acute infiltrate, patient not septic. She was admitted for UTI with AMS. Hospital Course: Patient admitted to the medical floor and started on IV Rocephin. Urine culture yielded no growth. Blood culture yielded no. Patient treated with IV Rocephin for 3 days. Her mental status improved with treatment. She with a history of chronic kidney disease stage 4, had acute renal failure which resolved with IV hydration. She is currently at baseline, she is eating well and interactive. Patient is on anticoagulation for AFib. I discussed concern for life- threatening bleed if she falls with the son Ryan. She does have a history of multiple TIAs in the past and he wanted us to continue the anticoagulation. The there was a drop in hemoglobin from 10 to 8 and stabilized around 8 during the hospital stay. No active GI bleed. Her Eliquis is resumed on discharge. Patient also prescribed Vantin to continue treatment for a few more days. Vital Signs/Physical Exam: Temp Pulse Resp BP Pulse Ox 97.8 F 97 H 18 171/81 H 98 03/07/21 12:00 03/07/21 12:00 03/07/21 12:00 03/07/21 12:00 03/07/21 12:00 General: Confused (at baseline), Other (Awake) HEENT: Mucous membr. moist/pink Neck: JVD not distended Respiratory: Clear to auscultation bilaterally, Normal air movement Cardiovascular: No edema, Regular rate/rhythm, Normal S1 S2 Gastrointestinal: Soft and benign, Non-distended Musculoskeletal: No swelling, No erythema Integumentary: No rashes Neurological: Normal strength at 5/5 x4 extr Laboratory Data at Discharge: WBC 6.20 K/uL (4.3-10.9) D 03/07/21 08:28 Hgb 8.7 g/dL (12.0-15.0) L 03/07/21 08:28 Hct 25.9 % (36.0-45.0) L 03/07/21 08:28 Plt Count 111 K/uL (152-406) L D 03/07/21 08:28 Sodium 142 mmol/L (136-145) 03/07/21 08:28 Potassium 4.2 mmol/L (3.5-5.1) 03/07/21 08:28 BUN 53 mg/dL (7-18) H 03/07/21 08:28 Creatinine 3.37 mg/dL (0.55-1.3) H 03/07/21 08:28 Glucose 103 mg/dL (74-106) 03/07/21 08:28 Uric Acid 8.6 mg/dL (2.6-6.0) H 03/05/21 03:25 Phosphorus 2.9 mg/dL (2.5-4.9) 03/07/21 08:28 Magnesium 4.1 mg/dL (1.8-2.4) H* 03/07/21 08:28 Total Bilirubin 0.3 mg/dL (0.2-1.0) 03/05/21 03:25 AST 19 U/L (15-37) 03/05/21 03:25 ALT 16 U/L (12-78) 03/05/21 03:25 Alkaline Phosphatase 75 U/L (45-117) 03/05/21 03:25 Troponin I 0.03 ng/mL (0.0-0.045) 03/04/21 04:50 Triglycerides 56 mg/dL (<150) 03/03/21 18:21 Triglycerides Cancelled 03/03/21 18:21 Cholesterol 137 mg/dL (<200) 03/03/21 18:21 Cholesterol Cancelled 03/03/21 18:21 HDL Cholesterol 62 mg/dL (40-60) H 03/03/21 18:21 HDL Cholesterol Cancelled 03/03/21 18:21 Cholesterol/HDL Ratio 2.21 03/03/21 18:21 Cholesterol/HDL Ratio Cancelled 03/03/21 18:21 Home Medications: Metoprolol Tartrate [Lopressor*] 25 mg PO BID 09/08/15 Vits A,C,E/Lutein/Minerals [Ocuvite with Lutein Tablet] 1 each PO DAILY 09/08/15 Aspirin 81 mg PO DAILY #30 tab.chew 09/25/15 Atorvastatin Calcium [Lipitor*] 10 mg PO BEDTIME #30 tab 09/25/15 Levothyroxine [Synthroid*] 50 mcg PO [id number] #30 tablet 09/25/15 Amlodipine [Norvasc*] 10 mg PO DAILY 03/03/21 Apixaban [Eliquis *] 2.5 mg PO BID 03/03/21 Dicyclomine HCl 20 mg PO DAILY 03/03/21 Donepezil [Aricept*] 5 mg PO BEDTIME 03/03/21 Folic Acid/Vit B Complex and C [Marisela-Lian Tablet] 1 mg PO DAILY 03/03/21 Magnesium Oxide [Mag 0X*] 800 mg PO DAILY 03/03/21 calcitrioL [Rocaltrol] 0.25 mcg PO DAILY 03/03/21 traMADol HCL [Ultram*] 50 mg PO BID 03/03/21 Acetaminophen 2 tab PO Q6H PRN 03/05/21 Cefpodoxime Proxetil 100 mg PO BID #3 tablet 03/07/21 Ensure Enlive 237 ml PO BID #0 can 03/07/21 New Medications: Cefpodoxime Proxetil 100 mg PO BID #3 tablet Diet: AHA Activity: Fall precautions Followup: NONE,NONE [Primary Care Provider] - 2-3 Days Time spent managing pt's care (in minutes): 38
[2021-03-07] MEDS ORDERED: carvediloL 6.25 MG TAB PO SCH (21:00)
[2021-03-07 21:18] VITALS: BP 120/66
[2021-03-08 00:52] VITALS: TEMP 97.5
[2021-03-08] MEDS ORDERED: AMLODIPINE 10 MG TAB PO SCH (09:00)
[2021-03-08 13:54] LABS: Hepatitis C Virus RNA (PCR)log <1.18 log IU/mL
[2021-03-09 01:38] LABS: HBsAG Nonreactive (Nonreactive)
[2021-03-09 22:48] LABS: Alpha-1-Globulins 0.3 g/dL (0.2-0.3); Alpha-2-Globulins 0.8 g/dL (0.5-0.9); Gamma Globulins 0.9 g/dL (0.8-1.7); INTERPRETATION REPORT
[2021-03-11 00:32] LABS: Vitamin D 1,25-Dihydroxy Total 12 pg/mL (18-72); Vitamin D,1,25-OH2, D2 <8 pg/mL
== END 2021-03-07 23:30 | DRG 70 ==
LOC: ER 13:13 → ERHOLD 17:00 → 2ND 03-04 20:07
PROVIDERS: ADMIT Internal Medicine; ATTEND Internal Medicine
DX: G93.41 Metabolic encephalopathy (principal); N18.6 End stage renal disease; N30.00 Acute cystitis without hematuria; N17.9 Acute kidney failure, unspecified; Z68.1 Body mass index [BMI] 19.9 or less, adult; E87.1 Hypo-osmolality and hyponatremia; N25.81 Secondary hyperparathyroidism of renal origin; E44.0 Moderate protein-calorie malnutrition; N18.4 Chronic kidney disease, stage 4 (severe); E86.0 Dehydration; E03.9 Hypothyroidism, unspecified; I12.9 Hypertensive chronic kidney disease with stage 1 through stage 4 chronic kidney disease, or unspecified chronic kidney disease; D64.9 Anemia, unspecified; E78.5 Hyperlipidemia, unspecified; I48.91 Unspecified atrial fibrillation; K21.9 Gastro-esophageal reflux disease without esophagitis; F03.90 Unspecified dementia, unspecified severity, without behavioral disturbance, psychotic disturbance, mood disturbance, and anxiety; F41.9 Anxiety disorder, unspecified; M19.90 Unspecified osteoarthritis, unspecified site; D63.1 Anemia in chronic kidney disease; R63.0 Anorexia; E78.00 Pure hypercholesterolemia, unspecified; F32.9 Major depressive disorder, single episode, unspecified; E83.41 Hypermagnesemia; Z66 Do not resuscitate; Z86.73 Personal history of transient ischemic attack (TIA), and cerebral infarction without residual deficits; Z79.01 Long term (current) use of anticoagulants; Z20.828 Contact with and (suspected) exposure to other viral communicable diseases
CPT/HCPCS: 36415; 51702; 70450; 71045; 76770; 80048; 80053; 80061; 80069; 81003; 81015; 82550; 82570; 82607; 82652; 82728; 82746; 83036; 83540; 83735; 83880; 83935; 83970; 84132; 84145; 84155; 84156; 84165; 84300; 84439; 84443; 84466; 84484; 84550; 85025; 85044; 86317; 86704; 86706; 87086; 87088; 87340; 87522; 93005; 97112; 97161; 99285; J0696; J1644; J2916; J7040; J7042; J7050; J7799; U0003